=== PATIENT | female | born 1985 | race African-American/Black ===

== ENCOUNTER 2019-01-04 21:48 | Emergency (ER) | payer SELFPAY ==
[~2019-01-04] VITALS: Ht 167.6 cm; Wt 62.0 kg
[2019-01-05] MEDS ORDERED: PHENYTOIN SODIUM 1,000 MG in SODIUM CHLORIDE 0.9% 100 ML IV ONE (03:15)
[2019-01-05 09:43] VITALS: BP 118/76
== END 2019-01-05 14:43 | disposition home or self-care (01) ==
LOC: ER 21:48
DX: G40.909 Epilepsy, unspecified, not intractable, without status epilepticus (principal); Z91.14 Patient's other noncompliance with medication regimen; E11.9 Type 2 diabetes mellitus without complications; C71.9 Malignant neoplasm of brain, unspecified; C78.00 Secondary malignant neoplasm of unspecified lung; Z59.0 Homelessness; F17.210 Nicotine dependence, cigarettes, uncomplicated; Z79.4 Long term (current) use of insulin
CPT/HCPCS: 81025; 82962; 96365; 96366; 99283; J1165; J7050

== ENCOUNTER 2019-01-05 18:39 | Emergency (ER) | payer SELFPAY ==
[~2019-01-05] VITALS: Ht 165.1 cm; Wt 63.0 kg
[2019-01-05 18:42] VITALS: BP 152/78
[2019-01-05] MEDS ORDERED: SODIUM CHLORIDE 0.9% 1,000 ML IV ONE (18:57)
== END 2019-01-05 19:20 | disposition left against medical advice (07) ==
LOC: ER 18:58
DX: G40.909 Epilepsy, unspecified, not intractable, without status epilepticus (principal); R03.0 Elevated blood-pressure reading, without diagnosis of hypertension; E11.9 Type 2 diabetes mellitus without complications; Z79.4 Long term (current) use of insulin
CPT/HCPCS: 99283; J7030; Z7610